=== PATIENT | female | born 1950 | race Caucasian/White ===

== ENCOUNTER 2017-08-18 10:29 | Inpatient (IN) | payer MEDICARE, SELFPAY ==
[~2017-08-18 10:29] MED LIST: Dexamethasone 20 MG/5 ML VIAL ONE; Lidocaine 1% PF 5 ML VIAL ONE; Ondansetron HCl/PF 4 MG/2 ML Vial ONE; Propofol 200 MG/20 ML VIAL ONE; Succinylcholine Chloride 20 MG/ML 10 ml SYRINGE FS ONE
[2017-08-18] MEDS ORDERED: Morphine 2 MG/ML SYRINGE ONE ×2 (11:06→12:27)
[2017-08-18 12:26] LABS: #Lymphocytes 0.7 thou/uL (1.20-3.40); #Monocytes 0.8 thou/uL (0.11-0.59); #Neutrophils 6.5 thou/uL (1.40-6.50); %Basophils 0.5 % (0.0-1.0); %Eosinophils 0.1 % (0.0-10.0); %Lymphocytes 9.2 % (21.0-51.0); %Monocytes 9.5 % (0.0-10.0); %Neutrophils 80.7 % (42.0-75.0); Hemoglobin 12.2 g/dL (12.0-16.0); Mean Corpuscular HGB CONC 33.6 g/dL (32.0-36.0); Mean Corpuscular Volume 95.1 fl (81.0-99.0); Platelet Count 235 thou/uL (130-400); RBC Distribution Width 13.3 % (11.5-14.5); Red Blood Cell (RBC) Count 3.82 mill/uL (4.20-5.40); White Blood Cell (WBC) Count 8.1 thou/uL (4.8-10.8)
[2017-08-18] MEDS ORDERED: Ketorolac Tromethamine 30 MG/ML VIAL ONE (12:27)
[2017-08-18 12:32] LABS: PTT 24.9 SEC (22.9-36.1)
[2017-08-18 12:43] LABS: Bilirubin Negative (Negative); Blood, Urine Negative (Negative); Clarity CLEAR (Clear); Glucose, Urine (Dipstick) Negative (Negative); Leukocyte Negative (Negative); Nitrite Negative (Negative); Protein, Urine (Dipstick) Negative (Neg-Trace); Specific Gravity, Urine 1.018 (1.002-1.036); pH, Urine 5.5 (5.0-9.0)
[2017-08-18] MEDS ORDERED: CEFAZOLIN/Water 2 GM/20 ML SYRINGE SLOW IVP SCH ×2 (12:45→15:45)
[2017-08-18 12:48] LABS: ALT (SGPT) 19 U/L (8-55); AST (SGOT) 24 U/L (5-34); Albumin 4.2 g/dL (3.4-4.8); Alkaline Phosphatase 103 U/L (40-150); Anion Gap 18 mmol/L (10-20); BUN (Urea Nitrogen) 19 mg/dL (9.8-20.1); CK (CPK) 373 U/L (29-168); Calc. Creatinine Clearance 0 mL/min (70-130); Calcium 9.3 mg/dL (7.8-10.44); Carbon Dioxide 21 mmol/L (23-31); Chloride 106 mmol/L (98-107); Estimated GFR-MDRD Greater than 90; Globulin 2.6 g/dL (2.4-3.5); Glucose 105 mg/dL (80-115); Lipase 7 U/L (8-78); Potassium 3.7 mmol/L (3.5-5.1); Protein, Total 6.8 g/dL (6.0-8.3); Sodium 141 mmol/L (136-145)
[2017-08-18] MEDS ORDERED: Dextrose 50% Abboject 50 ML SYRINGE SLOW IVP PRN ×2 (12:59→17:00)
[2017-08-18] MEDS ORDERED: Dextrose 5% in Water 1,000 ML IV PRN ×2 (12:59→17:00)
[2017-08-18] MEDS ORDERED: hydrALAZINE 20 MG/ML VIAL SLOW IVP PRN (12:59)
[2017-08-18] MEDS ORDERED: Ondansetron ODT 4 MG TAB PO PRN (12:59)
[2017-08-18] MEDS ORDERED: Morphine 4 MG/ML Carpuject IVP PRN (12:59)
[2017-08-18] MEDS ORDERED: Ondansetron HCl/PF 4 MG/2 ML Vial IVP PRN ×3 (12:59→17:03)
[2017-08-18] MEDS ORDERED: Sodium Chloride 0.9% 1,000 ML IV SCH (13:00)
--- NOTE | 2017-08-18 13:24 | CON ---
DATE OF CONSULTATION: 08/18/2017 CHIEF COMPLAINT: Left leg pain. HISTORY OF PRESENT ILLNESS: Ms. Cannon is a 67-year-old female who fell last night. She was not foun d and laid on the ground overnight. She was found by her neighbor this morning. She was taken to [facility] emergency department by EMS. She has been diagnosed with a distal femur fracture on x-ray. This w as an isolated injury. She is healthy overall. She does have hypertension. She has had a previous ankle fracture and distal tibia fracture. PAST MEDICAL HISTORY: Hypertension. PAST SURGICAL HISTORY: Previous left ankle ORIF and left tibia fracture ORIF. SOCIAL HISTORY: The patient denies tobacco, alcohol, or drug use. She works as a volunteer. FAMILY MEDICAL HISTORY: Noncontributory. PHYSICAL EXAMINATION: VITAL SIGNS: Stable. She is alert and oriented. She has been afebrile. HEENT: Normocephalic, atraumatic. RESPIRATORY: Breathing comfortably. ABDOMEN: Soft, nontender, nondistended. MUSCULOSKELETAL: The patient's left leg is in externally rotated and shortened position. She is inderjit rovascularly intact in the foot and ankle. She has pain with motion. She has palpable dorsalis pedi s pulse. Sensation intact in the dorsal and plantar aspect. IMAGES: X-rays of the left femur demonstrate a comminuted fracture of the femur with displacement an d shortening. There is intra-articular involvement of the distal femur fracture. She has previously placed tibial plate. IMPRESSION: Left distal femur fracture. PLAN: At this point, the patient will need operative treatment. I will plan for an intramedullary n ail of the left distal femur to restore anatomic alignment and promote healing. Goal surgery is pain relief and early mobilization. Risks have been reviewed in detail and she has accepted these. She will remain n.p.o. until after surgery. She will have appropriate antibiotics. Appropriate DVT prop hylaxis. All questions have been answered.
[2017-08-18] MEDS ORDERED: CEFAZOLIN/Water 2 GM/20 ML SYRINGE ONE (13:39)
[2017-08-18] MEDS ORDERED: Midazolam HCl 2 mg/2 ml Vial ONE (13:39)
--- NOTE | 2017-08-18 14:12 | HP ---
ADMITTING PHYSICIAN: Dr. Esdras Ryder. REQUESTING PHYSICIAN: Dr. Trevin Cyr. CONSULTING PHYSICIAN: Dr. Jose Eduardo Kim. CHIEF COMPLAINT: Left femur fracture. HISTORY OF PRESENT ILLNESS: The patient is a 67-year-old female who reportedly tripped and fell over her cat last night in the kitchen. She was unable to get off the floor and was unable to reach for her phone. She spent the night on the floor and was eventually discovered by a neighbor who heard her screaming this morning. She was brought to the [place] ED, evaluated and found to have a comminuted distal left femur fracture. The patient denies that she was drinking last night. Denies head injury, loss of consciousness or any other injury. On examination, she reports that her pain is 10/10, located in the distal left thigh and knee area. She said the pain does not radiate. She denies numbness or tingling in her extremities. She denies headache, dizziness , nausea, vomiting or other musculoskeletal pain. Dr. Kim was consulted for possible surgical fixation of her left leg and Trauma Services asked to admit. HOME MEDICATIONS: Include metoprolol, unknown dose; lisinopril, unknown dose; Seroquel, unknown dose; Lamictal, unknown dose and clonazepam, unknown dose. PAST MEDICAL HISTORY: Includes hypertension. PAST SURGICAL HISTORY: The patient reports a remote history of hysterectomy. Lumpectomy in the 1970s. Gastric bypass, 10 or more years ago. Open reduction and internal fixation of her left tibia 3 years ago as well as open reduction and internal fixation of her left ankle approximately 3 years ago as well. SOCIAL HISTORY: The patient lives alone. She has 2 adult children. She does not smoke. She does not do drugs. She does drink 1-2 alcoholic drinks per night. ALLERGIES: The patient does report a SHELLFISH allergy, but does not report any medication allergies. FAMILY HISTORY: Noncontributory. PHYSICAL EXAMINATION: VITAL SIGNS: Blood pressure 178/87, pulse 81, respirations 20 and O2 saturation 97% on room air. GENERAL APPEARANCE: The patient is an adult female who appears young for stated age, lying in bed. She does appear to be in a moderate amount of distress. She has pains such as grimacing and wincing. She is intermittently tearful when talking about her social situation. HEENT: She is normocephalic and atraumatic. Pupils are equal, round and reactive to light and accommodation. Extraocular movements are intact. Ears; external auditory canals are atraumatic. Nose; nares are patent. No blood. Oropharynx is atraumatic. Dentition intact. NECK: Supple and nontender. No carotid bruits. Trachea is midline. RESPIRATORY: Her breath sounds are clear to auscultation bilaterally with normal effort. CARDIOVASCULAR: She has a regular rate and rhythm. Normal S1 and S2. No murmurs, gallops or rubs. ABDOMEN: Soft, obese, nontender and nondistended. She has normal bowel sounds. MUSCULOSKELETAL: She is neurovascularly intact x4. Her radial and dorsalis pedis pulses are 2+ bilaterally. Her distal left thigh appears somewhat swollen. SKIN: Intact. There is no ecchymosis. There does not appear to be any gross deformity. NEUROLOGIC: She is alert and oriented x3. Her GCS is 15. Her cranial nerves II-XII are intact. She has no focal deficits. PSYCHIATRIC: The patient appears quite tearful at times on talking about her . She does not appear to have any thought disorder and her mood and affect are appropriate. LABORATORY DATA: Hematology: WBC is 8.1, hemoglobin is 12.2, hematocrit 36.3 and platelets 235. Coag panel: PT 13.0, INR 1.08 and PTT 24.9. Chemistry: Sodium 141, potassium 3.7, chloride 106, bicarbonate 21, BUN 19, creatinine 0.64 and glucose 105. Creatinine kinase 373. Lipase 7. Liver function panel is normal. Her urine contains trace ketones, but is otherwise normal. IMAGING DATA: Femur x-ray shows a distal comminuted left femur fracture. There is additional hardware in place from a previous tibial fracture. Chest x- ray by my read, this does not show any acute cardiopulmonary process; however, official read still pending. ASSESSMENT AND PLAN: 1. Status post mechanical fall. 2. Distal left comminuted femur fracture. 3. Acute traumatic pain. 4. History of hypertension, present on admission. 5. History of depression present on admission. PLAN: 1. Plan will be for surgical fixation of her left femur today. Dr. Jose Eduardo Kim will be taking her to the OR approximately 2:00 p.m. 2. The patient will be transferred to the surgical floor postoperatively. We will initiate pain control, gastritis prophylaxis and pulmonary toileting. Chemical DVT prophylaxis will be initiated when okay per Orthopedic Surgery recommendations. 3. The patient will be scheduled to work with PT and OT for help with mobilization. Anticipate patient will discharge home early next week. This patient was seen and discussed with Dr. Esdras Ryder, who agrees with the assessment and plan. BEATA
--- NOTE | 2017-08-18 14:26 | RAD ---
TWO VIEWS OF THE LEFT FEMUR: History Fall from standing yesterday and found this morning by a neighbor. Pain in the left leg. FINDINGS: Two views of the left femur show a comminuted fracture of the distal diaphysis of the femur. It is d ifficult to determine if the fracture extends to the intercondylar notch at the knee joint. There is a moderate knee effusion without obvious fat fluid level. IMPRESSION: Comminuted distal femur fracture. Dedicated radiographs of the knee should be performed to evaluate for intraarticular extension of this fracture. POS: [facility]
[2017-08-18] MEDS ORDERED: Fentanyl 250 MCG/5 ML VIAL ONE ×2 (14:32→16:33)
--- NOTE | 2017-08-18 14:35 | RAD ---
SINGLE VIEW OF THE CHEST: COMPARISON: None. History Fall. Preoperative exam. Left femur fracture. FINDINGS: A single view of the chest shows a normal-size cardiomediastinal silhouette. There is no evidence of consolidation, mass, or pleural effusion. Mild degenerative changes are seen in the spine. IMPRESSION: No evidence of acute cardiopulmonary disease. POS: [facility]
[2017-08-18] MEDS ORDERED: Promethazine HCl 25 MG/ML VIAL SLOW IVP PRN (15:35)
[2017-08-18] MEDS ORDERED: Promethazine HCl 25 MG/ML VIAL IM PRN (15:35)
[2017-08-18] MEDS ORDERED: traMADol HCl 50 MG TAB PO SCH (16:00)
[2017-08-18] MEDS ORDERED: Acetaminophen 500 MG TAB PO SCH (16:00)
[2017-08-18] MEDS ORDERED: traMADol HCl 50 MG TAB PO PRN (16:00)
--- NOTE | 2017-08-18 16:10 | OP ---
DATE OF PROCEDURE: 08/18/2017 PROCEDURE PERFORMED: Left femur retrograde intramedullary nail. PREOPERATIVE DIAGNOSIS: Left distal femur fracture, intra-articular. POSTOPERATIVE DIAGNOSIS: Left distal femur fracture, intraarticular. COMPLICATIONS: None. ESTIMATED BLOOD LOSS: 150 mL. SURGEON: Jose Eduardo Kim M.D. ANESTHESIA: General. NARROW GAUGE BRAKEMAN: Lisa Guerra PA-C. IMPLANTS: Synthes femoral nail, retrograde size 400 mm x 12 mm. INDICATIONS: Ms. Cannon is a 67-year-old female who fell. She fractured her left distal femur. She has had previous ankle and tibia fractures. She was indicated for intramedullary nail fixation of th e femur to restore alignment and promote healing in an anatomic fashion. Risks have been reviewed in detail. She elected to proceed. Risks include infection, nerve or vascular injury, wound complicat ion, nonunion, malunion, hardware failure or complication and others. DESCRIPTION OF PROCEDURE: Ms. Miguel was identified in the preoperative holding area. Her chris ect extremity was marked. She was carried to the operating room. She was positioned supine. Genera l anesthesia was induced. A multidisciplinary timeout was performed. She was given intravenous anti biotics. We began the procedure with evaluation of the fracture under intraoperative x-ray. We placed a clamp across the intraarticular split of the distal femur. We then placed a 4.0 screw across the fracture stabilizing the intraarticular split. At this point, we made a small approach to the anterior knee. We made a medial parapatellar arthrotomy. We then placed our guidewire in the center position of t he distal femur. We over reamed the guidewire. We then placed a ball-tip guidewire across the fract ure into the proximal femur. At this point, we evaluated again with intraoperative x-ray. We then o landen reamed the guidewire to a size 13 reamer. We then passed a 12 mm femoral nail. This was seated with x-ray. We then passed a helical blade and screw in the distal fragments appropriately. We plac ed a proximal cross lock screw using perfect mashpee technique. We took x-ray images confirming hardw are placement. We thoroughly irrigated with copious lavage. At this point, the patient's wounds wer e closed with 0 Vicryl suture, 2-0 Vicryl suture and reginald for the skin. A sterile dressing was ap plied as well as a knee immobilizer. She was taken to the recovery room in good condition without co mplications.
[2017-08-18] MEDS ORDERED: Morphine 2 MG/ML SYRINGE SLOW IVP PRN (17:02)
[2017-08-18] MEDS: Sodium Chloride 0.9% 1,000 ML IV SCH (17:15)
[2017-08-18] MEDS: Ibuprofen 600 MG TAB PO SCH (17:53)
[2017-08-18 18:39] VITALS: BMI 23.5
[2017-08-18] MEDS: Ondansetron ODT 4 MG TAB PO PRN (18:40)
--- NOTE | 2017-08-18 18:56 | RAD ---
TWO VIEWS RIGHT FOOT 08/18/17 HISTORY: Right great toe pain after a fall. FINDINGS: There is mild osteoarthritis involving the first metatarsophalangeal joint. Osteopenia is present. Th e great toe is obscured on the lateral projection due to overlying toes. There is a linear transverse area of sclerosis seen within the distal phalanx of the right great toe which may be attributable to the trabecular pattern, although fracture of indeterminate age is not entirely excluded. There is no fracture lucency visualized. No additional fracture is seen, and there is no dislocation. Mild degen erative changes are seen involving the hindfoot. IMPRESSION: 1. Transverse linear area of sclerosis in the distal phalanx right great toe which may represent a fracture of indeterminate age. No definite cortical disruption is present, and this could potentia lly be related to the trabecular pattern. The distal phalanx of the great toe is obscured on the late ral view limiting further evaluation. 2. Osteoarthritis first metatarsophalangeal joint. 3. Osteopenia. POS: [facility]
[2017-08-18] MEDS: traMADol HCl 50 MG TAB PO PRN (19:36)
[2017-08-18] MEDS: Famotidine 20 MG TAB PO SCH (20:48)
[2017-08-18] MEDS: Acetaminophen 500 MG TAB PO SCH (20:48)
[2017-08-18] MEDS: traMADol HCl 50 MG TAB PO SCH (20:49)
[2017-08-18] MEDS ORDERED: Prevnar 13-Val Conj/PF 0.5 ML SYRINGE IM ONE (21:00)
[2017-08-18] MEDS ORDERED: Famotidine/PF 20 mg/2ml Vial SLOW IVP SCH ×2 (21:00)
[2017-08-18] MEDS ORDERED: Famotidine 20 MG TAB PO SCH (21:00)
[2017-08-18] MEDS ORDERED: Lisinopril 10 MG TAB PO SCH (21:45)
--- NOTE | 2017-08-18 22:20 | RAD ---
AP AND LATERAL INTRAOPERATIVE FLUOROSCOPIC IMAGES OF THE LEFT FEMUR 08/18/17 HISTORY: Fracture, internal fixation. COMPARISON: 08/18/17, 1125 hours. There has been interval placement of a retrograde intramedullary alber with proximal and distal interlo cking screws transfixing the previously seen comminuted fracture of the distal left femoral diaphysis and metadiaphysis. No hardware complication is seen. There is improved alignment and angulation of t he fracture. Postsurgical changes proximal left knee are partially imaged as well. IMPRESSION: Internal fixation comminuted fracture distal left femur. POS: [facility]
[2017-08-19] MEDS: Ibuprofen 600 MG TAB PO SCH ×5 (00:11→23:49)
[2017-08-19] MEDS: Sodium Chloride 0.9% 1,000 ML IV SCH ×2 (00:12→07:10)
--- NOTE | 2017-08-19 01:08 | ADD-HP ---
ADDENDUM This is an addendum to the H and P dictated by Tre Sanchez trauma PA. For full details please se nahid lawson dictation. In short Ms. Miguel is a 67-year-old woman who tripped over her cat and fell onto her left leg. She was unable to get up and lay on the kitchen floor all night until she was heard by a neighbor th is morning and brought to the emergency room. She was found to have a comminuted intra-articular dis robert left femur fracture. She denies loss of consciousness or any other injuries. She has already be en to the operating room with Dr. Kim for ORIF and is feeling better now. OUTPATIENT MEDICATIONS: Include metoprolol and another blood pressure medication of his name she is not sure. She did give the nurse the name of her pharmacy to call and check on her doses as she does not know any of her doses. PAST MEDICAL HISTORY: She has a past medical history of only hypertension, has had multiple ORIF on the left leg including the ankle and the tibia. She underwent gastric bypass many years ago as well as a hysterectomy and a lumpectomy. SOCIAL HISTORY: She does not smoke or use illicit drugs. She does drink socially 1 or 2 drinks per night. ALLERGIES: She has no medication allergies. Does report a SHELLFISH allergy. FAMILY HISTORY: Noncontributory. PHYSICAL EXAMINATION: Complete physical examination was performed myself with the exception of the l eft distal femur fracture and postoperative changes. No other injuries were identified. LABORATORY DATA AND IMAGING: Reviewed and I agree with the written reports. ASSESSMENT: Distal left femur fracture, status post open reduction and internal fixation. The nurse is updating her medication list so we can start her back on her oral antihypertensives. She is runn ing a little high with her systolic in the 160s and usually takes her blood pressure pills at night. Physical therapy has been ordered to begin working with the patient tomorrow. We will continue to ariel cortez to manage her overall care.
[2017-08-19] MEDS: traMADol HCl 50 MG TAB PO SCH ×4 (03:00→21:54)
[2017-08-19] MEDS: traMADol HCl 50 MG TAB PO PRN ×3 (03:00→17:35)
[2017-08-19] MEDS: Acetaminophen 500 MG TAB PO SCH ×4 (03:01→21:54)
[2017-08-19 05:41] LABS: Anion Gap 10 mmol/L (10-20); BUN (Urea Nitrogen) 13 mg/dL (9.8-20.1); CK (CPK) 255 U/L (29-168); Calc. Creatinine Clearance 99 mL/min (70-130); Calcium 7.9 mg/dL (7.8-10.44); Carbon Dioxide 23 mmol/L (23-31); Chloride 106 mmol/L (98-107); Estimated GFR-MDRD Greater than 90; Glucose 105 mg/dL (80-115); Magnesium 1.8 mg/dL (1.6-2.6); Phosphorus 3.6 mg/dL (2.3-4.7); Potassium 4.1 mmol/L (3.5-5.1); Sodium 135 mmol/L (136-145)
[2017-08-19 06:05] LABS: #Lymphocytes 1.3 thou/uL (1.20-3.40); #Monocytes 0.8 thou/uL (0.11-0.59); #Neutrophils 3.9 thou/uL (1.40-6.50); %Basophils 0.1 % (0.0-1.0); %Eosinophils 0.6 % (0.0-10.0); %Lymphocytes 21.6 % (21.0-51.0); %Monocytes 13.4 % (0.0-10.0); %Neutrophils 64.4 % (42.0-75.0); Hemoglobin 8.5 g/dL (12.0-16.0); Mean Corpuscular HGB CONC 30.9 g/dL (32.0-36.0); Mean Corpuscular Hemoglobin 30.5 pg (27.0-31.0); Mean Corpuscular Volume 98.7 fl (81.0-99.0); Mean Platelet Volume 8.8 fL (7.4-10.4); Platelet Count 163 thou/uL (130-400); RBC Distribution Width 13.2 % (11.5-14.5); Red Blood Cell (RBC) Count 2.78 mill/uL (4.20-5.40); White Blood Cell (WBC) Count 6.1 thou/uL (4.8-10.8)
[2017-08-19] MEDS: Enoxaparin Sodium 40 MG/0.4 ML SYRINGE SC SCH (08:17)
[2017-08-19] MEDS: Famotidine 20 MG TAB PO SCH ×2 (08:18→20:47)
[2017-08-19] MEDS: Ondansetron ODT 4 MG TAB PO PRN (12:49)
--- NOTE | 2017-08-19 17:25 | PRG ---
DATE OF SERVICE: 08/19/2017 ATTENDING PHYSICIAN: Dr. Esdras Ryder. SUBJECTIVE: Ms. Miguel is a 67-year-old female who suffered a distal left femur fracture after a ground-level fall a couple of days ago. She was unable to get off the floor and sustained some mil d rhabdomyolysis. She is currently postop day #1, status post intramedullary nail fixation. She is currently stable on the floor and reporting adequate pain control. OBJECTIVE: VITAL SIGNS: BP 125/74, pulse 60, temperature 98.0, respirations 18, O2 sat 97% on room air. GENERAL: Patient is an adult female in no acute distress. HEENT: She is normocephalic and atraumatic. RESPIRATORY: Her breath sounds are clear to auscultation bilaterally with normal effort. CARDIOVASCULAR: She has a regular rate and rhythm. No murmurs, gallops or rubs. ABDOMEN: Soft, obese, nontender, nondistended. She has normal bowel sounds. MUSCULOSKELETAL: She is neurovascularly intact x4. Her distal pulses are 2+ bilaterally. NEUROLOGIC: She is alert and oriented x3. Her GCS is 15. She has no focal deficits. LABORATORY DATA: Hematology: WBC 6.1, hemoglobin 8.5, hematocrit 27.5, platelets 163. Chemistry: Sodium 135, potassium 4.1, chloride 106, bicarbonate 23, BUN 13, creatinine 0.61, glucose 105, creati ne kinase 255 today down from 373 yesterday. IMAGING: There are no images to review today. ASSESSMENT: 1. Status post ground level fall. 2. Distal left comminuted femur fracture, status post intramedullary nail. 3. Acute traumatic pain. 4. History of hypertension. 5. History of depression. PLAN: 1. Continue to optimize patient's pain control. 2. Gastritis prophylaxis and supportive care measures as needed. 3. Chemical DVT prophylaxis when okay per Orthopedic Surgery recommendations. 4. Patient will need to work with PT and OT for mobilization. This patient was discussed over the phone with Dr. Mikael Ross who agrees with the assessment and p sg.
[2017-08-19] MEDS ORDERED: Lisinopril 10 MG TAB PO SCH (21:00)
[2017-08-20] MEDS: Acetaminophen 500 MG TAB PO SCH ×4 (03:48→22:07)
[2017-08-20] MEDS: traMADol HCl 50 MG TAB PO SCH ×4 (03:48→22:07)
[2017-08-20] MEDS: Ibuprofen 600 MG TAB PO SCH ×3 (05:41→17:45)
[2017-08-20] MEDS: Famotidine 20 MG TAB PO SCH ×2 (09:50→20:21)
[2017-08-20] MEDS: Senokot S 8.6-50 MG TAB PO SCH ×2 (09:50→20:21)
[2017-08-20] MEDS: Polyethylene Glycol 3350 17 GM Packet PO SCH (09:50)
[2017-08-20] MEDS: Enoxaparin Sodium 40 MG/0.4 ML SYRINGE SC SCH (09:50)
[2017-08-20] MEDS: traMADol HCl 50 MG TAB PO PRN ×2 (09:51→16:11)
--- NOTE | 2017-08-20 14:00 | PQF ---
CLINICAL DOCUMENTATION IMPROVEMENT CLARIFICATION FORM: ICD-10 Updated PLEASE DO AN ADDENDUM TO THE PROGRESS NOTE WITH ANY DOCUMENTATION UPDATES OR ADDITIONS AND CARRY THROUGH TO DC SUMMARY. THANK YOU. DATE: 08/20 ATTN: DR. LÓPEZ MANCERA Please exercise your independent, professional judgment in responding to the clarification form. Clinical indicators are provided on the bottom of this form for your review. Please check appropriate box(s): [ ] RHABDOMYOLYSIS [ X ] RHABDOMYOLYSIS TRAUMATIC [ ] Other diagnosis [ ] Unable to determine For continuity of documentation, please document condition throughout progress notes and discharge summary. Thank You. CLINICAL INDICATORS - SIGNS / SYMPTOMS / LABS ER PRESENTATION 08/18: FELL FROM STANDING YESTERDAY. FOUND THIS AM BY NEIGHBOR ATTENDING H&P DOCUMENTATION 08/18: THE PATIENT REPORTEDLY TRIPPED AND FELL OVER HER CAT LAST NIGHT IN THE KITCHEN. SHE WAS UNABLE TO GET OFF THE FLOOR & WAS UABLE TO REACH FOR HER PHONE. SHE SPENT THE NIGHT ON THE FLOOR & WAS EVENTUALLY DISCOVERED BY A NEIGHBOR WHO HER SCREAMING THIS MORNING. ATTENDING PN 08/19: MS. KIMBROUGH SUFFERED A DISTAL LEFT FEMUR FRACTURE AFTER A GROUND LEVEL FALL A COUPLE OF DAYS AGO. SHE WAS UNABLE TO GET OFF THE FLOOR & SUSTAINED SOME MILD RHABDOMYOLYSIS. RISK FACTORS: FALL FROM STANDING LAY ON FLOOR OVER NIGHT L DISTAL FEMUR FRACTURE TREATMENTS: IVF (NS 08/18 - ; RECEIVED 1L NS IN ER) THANK YOU! Karishma (This form is maintained as a part of the permanent medical record) 2014 [employer]. All Rights Reserved Karishma Baker RN, BSN [email or web address] Office: [phone] [facility]
[2017-08-20] MEDS: hydrALAZINE 20 MG/ML VIAL SLOW IVP PRN (17:46)
[2017-08-20] MEDS ORDERED: Lisinopril 20 MG TAB PO SCH (19:45)
--- NOTE | 2017-08-20 23:05 | PRG ---
DATE OF SERVICE: 08/20/2017 ATTENDING PHYSICIAN: Dr. Mikael Ross. SUBJECTIVE: Mrs. Miguel is a 67-year-old female, who suffered a distal left femur fracture afte r ground level fall. She was unable to get up off the floor overnight and suffered some mild rhabdom yolysis. She is currently postop day #2 status post intramedullary nail fixation. She is currently stable on the floor reporting adequate pain control. OBJECTIVE: VITAL SIGNS: BP 168/71, pulse 68, temperature 98.4, respirations 18, and O2 sat 91% on room air. GENERAL APPEARANCE: The patient is an adult female in no acute distress. HEENT: Normocephalic and atraumatic. RESPIRATORY: Breath sounds clear to auscultation bilaterally with normal effort. CARDIOVASCULAR: Regular rate and rhythm. Normal S1 and S2. No murmurs, gallops, or rubs. ABDOMEN: Soft, obese, nontender, nondistended. She has normal bowel sounds. EXTREMITIES: She is neurovascularly intact x4. Dorsalis pedis pulses 2+ bilaterally. NEUROLOGIC: She is alert and oriented x3. Her GCS is 15. She has no focal deficits. LABORATORY DATA: There are no labs to review today. IMAGING: There are no images to review today. ASSESSMENT: 1. Status post ground level fall. 2. Distal left comminuted femur fracture, status post intramedullary nail. 3. Acute traumatic pain. 4. Mild rhabdomyolysis. 5. History of hypertension present on admission. 6. History of depression present on admission. PLAN: 1. We will continue pain control regimen is ordered. We will give other supportive care measures as needed. 2. Patient will need to work with PT and OT for mobilization. Her nurse report, the patient was dominique ble to work with PT and OT yesterday out of fear of getting hurt. I spoke with the patient on rounds this morning and she agreed to try to attempt to work with PT this morning. 3. Case management was following. The patient expresses her interest in going to a senior care facility in [place]. The patient was seen and examined along with Dr. Mikael Ross on rounds who agrees with the assessme nt and plan.
[2017-08-21] MEDS: Ibuprofen 600 MG TAB PO SCH ×4 (00:18→18:32)
[2017-08-21] MEDS: Acetaminophen 500 MG TAB PO SCH ×4 (03:50→21:16)
[2017-08-21] MEDS: traMADol HCl 50 MG TAB PO SCH ×4 (03:51→21:15)
[2017-08-21] MEDS: Famotidine 20 MG TAB PO SCH ×2 (08:34→21:15)
[2017-08-21] MEDS: Polyethylene Glycol 3350 17 GM Packet PO SCH (08:35)
[2017-08-21] MEDS: Senokot S 8.6-50 MG TAB PO SCH ×2 (08:35→21:17)
[2017-08-21] MEDS: hydrALAZINE 20 MG/ML VIAL SLOW IVP PRN ×2 (10:30→15:25)
[2017-08-21] MEDS: Enoxaparin Sodium 40 MG/0.4 ML SYRINGE SC SCH (10:31)
[2017-08-21] MEDS ORDERED: Lisinopril 20 MG TAB PO SCH ×2 (12:15→21:00)
[2017-08-21] MEDS: Lisinopril 20 MG TAB PO SCH (21:15)
--- NOTE | 2017-08-21 22:10 | PRG ---
DATE OF SERVICE: 08/21/2017 ATTENDING PHYSICIAN: Dr. Mikael Ross. SUBJECTIVE: Ms. Miguel is a 67-year-old female who had a ground level fall with a left distal femur fracture. She was unable to get off the floor at that time and had some rhabdomyolysis. CK began to come down after infusion of intravenous fluids. She is currently postoperative day #3 status post IM nail of the femur fracture. She has been stable on the floor, but did have some episodes of hypertension. Her home blood pressure medicine was restarted last night. Today, her lisinopril was increased from 20 mg to 40 mg in divided doses. OBJECTIVE: VITAL SIGNS: Temperature 98.8, pulse 68, respirations 18, O2 saturation 98% room air, blood pressure 196/88. It should be noted that after the a.m. dose of lisinopril, the blood pressure came down to 162/64. GENERAL: Well-nourished, well-developed female, sitting in bed, in no acute distress. HEENT: Normocephalic, atraumatic. RESPIRATORY: No respiratory distress. Bilateral breath sounds clear. CARDIOVASCULAR: Regular rate and rhythm. ABDOMEN: Soft, nontender, nondistended. EXTREMITIES: Neurovascular intact, of all extremities. Cap refill brisk. NEUROLOGIC: Alert and oriented x3. GCS 15. ASSESSMENT: 1. Status post ground level fall. 2. Left comminuted distal femur fracture. 3. Status post intramedullary nail. 4. Mild rhabdomyolysis, resolved. 5. History of hypertension, present on admission. PLAN: 1. Lisinopril increased to 40 mg in divided doses today. Reassess blood pressure in a.m. 2. Continue PT, OT for mobilization. 3. Case management following for placement in a intermediate facility. The patient was seen and examined by Dr. Ross who agrees with the assessment and plan. BEATA
[2017-08-22] MEDS: Ibuprofen 600 MG TAB PO SCH ×4 (00:17→17:57)
[2017-08-22] MEDS: Acetaminophen 500 MG TAB PO SCH ×4 (03:52→21:05)
[2017-08-22] MEDS: traMADol HCl 50 MG TAB PO SCH ×4 (03:52→21:04)
[2017-08-22] MEDS: traMADol HCl 50 MG TAB PO PRN ×2 (05:20→12:27)
[2017-08-22] MEDS: Enoxaparin Sodium 40 MG/0.4 ML SYRINGE SC SCH (09:57)
[2017-08-22] MEDS: Famotidine 20 MG TAB PO SCH ×2 (09:58→21:02)
[2017-08-22] MEDS: Polyethylene Glycol 3350 17 GM Packet PO SCH (09:59)
[2017-08-22] MEDS: Senokot S 8.6-50 MG TAB PO SCH ×2 (10:00→21:03)
[2017-08-22] MEDS: Lisinopril 20 MG TAB PO SCH ×2 (10:10→21:02)
--- NOTE | 2017-08-22 14:26 | PRG ---
DATE OF SERVICE: 08/22/2017 ATTENDING PHYSICIAN: Mikael Ross D.O. SUBJECTIVE: Ms. Miguel is a 67-year-old female who had a ground level fall with a left distal femur fracture. She is now postoperative day 4 status post IM nail of the femur. She has been stable on the floor. She had episodes of hypertension yesterday. Lisinopril was increased to 40 mg daily. She reports that her sleep was much better yesterday and her blood pressure has significantly come down. OBJECTIVE: VITAL SIGNS: Temperature 98.4, pulse 66, respirations 16, O2 sat 97% room air, blood pressure 147/75. GENERAL: Well-nourished, well-developed female sitting in bed, in no acute distress. HEENT: Normocephalic, atraumatic. RESPIRATORY: No respiratory distress. Bilateral breath sounds clear. CARDIOVASCULAR: Regular rate and rhythm. Heart sounds normal. ABDOMEN: Soft, nontender, nondistended. EXTREMITIES: Neurovascular intact in all extremities. Cap refill brisk. A knee immobilizer in place in left leg. NEUROLOGIC: Awake, alert and oriented x3. GCS 15. No focal deficits. ASSESSMENT: 1. Status post ground level fall. 2. Left comminuted distal femur fracture. 3. Status post intramedullary nail. 4. History of hypertension, present on admission. Lisinopril increased to 40 mg daily. PLAN: 1. Continue lisinopril 40 mg daily. This will be administered in the p.m. dosing fashion as her metoprolol is administered in the morning. 2. Continue PT, OT for mobilization. 3. Case management following the placement of intermediate facility. 4. Anticipate discharging to a intermediate facility in [place] with insurance approval received. 5. Lovenox for DVT prophylaxis. 6. Pepcid for PUD prophylaxis. The patient was seen and examined with Dr. Ross who agrees with the assessment and plan. [facility]
[2017-08-23] MEDS: Ibuprofen 600 MG TAB PO SCH ×4 (01:28→18:05)
[2017-08-23] MEDS: Acetaminophen 500 MG TAB PO SCH ×4 (05:06→21:33)
[2017-08-23] MEDS: traMADol HCl 50 MG TAB PO SCH ×4 (05:06→21:36)
[2017-08-23] MEDS: Enoxaparin Sodium 40 MG/0.4 ML SYRINGE SC SCH (08:29)
[2017-08-23] MEDS: Polyethylene Glycol 3350 17 GM Packet PO SCH (08:29)
[2017-08-23] MEDS: Senokot S 8.6-50 MG TAB PO SCH ×2 (08:30→22:35)
[2017-08-23] MEDS: CeleCOXIB 100 MG CAP PO PRN (08:30)
[2017-08-23] MEDS: Famotidine 20 MG TAB PO SCH ×2 (08:30→21:35)
[2017-08-23] MEDS ORDERED: Cyclobenzaprine 10 MG TAB PO PRN (09:11)
[2017-08-23] MEDS: hydrALAZINE 20 MG/ML VIAL SLOW IVP PRN (15:54)
--- NOTE | 2017-08-23 17:35 | PRG ---
DATE OF SERVICE: 08/23/2017 ATTENDING PHYSICIAN: Dr. Mikael Ross. SUBJECTIVE: Ms. Miguel is a 67-year-old female who had a ground level fall with a left distal femur fracture. She is now postoperative day #5, status post IM nail of the left femur. She has been stable in the surgical floor. She has been awaiting insurance approval for rehab placement. Pain has been well controlled; however, she reports she has been upset that insurance has not approved her rehab stay. She continues to work with physical and occupational therapy. OBJECTIVE: VITAL SIGNS: Temperature 98.0, pulse 62, respirations 18, O2 sat 97% on room air, blood pressure 144/72. GENERAL: Well-nourished, well-developed female lying in bed in no acute distress. HEENT: Normocephalic, atraumatic. RESPIRATORY: No respiratory distress. Bilateral breath sounds clear. CARDIOVASCULAR: Regular rate and rhythm. Heart sounds normal. ABDOMEN: Soft, nontender, nondistended. EXTREMITIES: Neurovascular intact in all extremities. Cap refill brisk. Knee immobilizer in place left leg. NEUROLOGIC: Awake, alert, oriented x3. GCS 15. No focal deficit. ASSESSMENT: 1. Status post ground level fall. 2. Left comminuted distal femur fracture. 3. Status post intramedullary nail. 4. History of hypertension, present on admission. PLAN: 1. Continue oral analgesia scheduled. 2. Continue antihypertensive medications as scheduled. 3. Continue PT, OT for mobilization. 4. Case management following for placement in a [facility] facility in [place], [place]. 5. Medically stable to discharge to [facility] facility when insurance approved. 6. Lovenox for deep venous thrombosis prophylaxis. 7. Pepcid for PUD prophylaxis. The patient was seen and examined with Dr. Ross, who agrees with the assessment and plan. [facility]
[2017-08-23] MEDS: traMADol HCl 50 MG TAB PO PRN (19:14)
[2017-08-23] MEDS: Lisinopril 20 MG TAB PO SCH (21:34)
[2017-08-24] MEDS: Ibuprofen 600 MG TAB PO SCH ×3 (00:07→11:59)
[2017-08-24] MEDS: Acetaminophen 500 MG TAB PO SCH ×3 (05:59→16:04)
[2017-08-24] MEDS: traMADol HCl 50 MG TAB PO SCH ×3 (06:00→16:05)
[2017-08-24] MEDS: CeleCOXIB 100 MG CAP PO PRN (09:38)
[2017-08-24] MEDS: Famotidine 20 MG TAB PO SCH (09:39)
[2017-08-24] MEDS: Senokot S 8.6-50 MG TAB PO SCH (09:40)
[2017-08-24] MEDS: Enoxaparin Sodium 40 MG/0.4 ML SYRINGE SC SCH (09:40)
[2017-08-24] MEDS: Polyethylene Glycol 3350 17 GM Packet PO SCH ×2 (09:40→09:41)
[2017-08-24] MEDS: hydrALAZINE 20 MG/ML VIAL SLOW IVP PRN (12:00)
[2017-08-24 15:23] VITALS: BP 145/75; TEMP 98.3
--- NOTE | 2017-08-25 01:13 | DIS ---
DATE OF ADMISSION: 08/18/2017 DATE OF DISCHARGE: 08/24/2017 ADMITTING PHYSICIAN: Dr. Esdras Ryder. DISCHARGING PHYSICIAN: Dr. Mikael Ross. REASON FOR HOSPITALIZATION: Ground level fall with left lower extremity pain. HOSPITAL DIAGNOSIS: Left distal comminuted femur fracture. DISCHARGE CONDITION: Good. DISPOSITION: [facility] in [place], [place]. MEDICATIONS: 1. Acetaminophen 500 mg p.o. q.6 hours. 2. Celebrex 100 mg p.o. b.i.d. 3. Flexeril 10 mg p.o. t.i.d. p.r.n. 4. Lovenox 40 mg subcutaneous once a day. 5. Pepcid 20 mg p.o. b.i.d. 6. Hydralazine 10 mg q.4 hours p.r.n. 7. Ibuprofen 600 mg p.o. q.6 hours. 8. Zestril 40 mg p.o. q.p.m. 9. Toprol-XL 50 mg p.o. q.a.m. 10. MiraLax 17 grams p.o. daily. 11. Senokot-S 1 tab p.o. b.i.d. 12. Tramadol 50 mg p.o. q.6 hours with an additional 50 mg p.o. q.6 hours p.r.n. PROCEDURES: Left femur retrograde IM nail. Surgeon: Dr. Jose Eduardo Kim. Date of procedure: 08/18/2017 BRIEF HISTORY OF HOSPITALIZATION: Ms. Miguel is a 67-year-old female who had a ground level fall on 08/18/2017. She was transported to [facility] where she was found to have a fracture of her left distal femur. She was admitted to the hospital by Trauma Services. Dr. Jose Eduardo iKm, Orthopedics, was consulted. He took the patient to the OR the same day of admission for fixation of her femur fracture. She was then managed on the surgical floor. Postoperatively, she had several bouts of hypertension, necessitating increase in her lisinopril. She subsequently had blood pressure that was within acceptable limits. She mobilized with physical and occupational therapy. Her discharge was delayed due to waiting on insurance approval for placement in a custodial facility. On 08/24/2017, authorization was obtained and acceptance to [facility] in [place], [place]. She was discharged to [facility]. She is to follow up with Dr. Kim in 2 weeks. There is no need for her to follow up with Trauma Services. The patient was seen and examined with Dr. Ross who agreed with the assessment and plan for discharge. [facility]
== END 2017-08-24 16:40 | DRG 956 ==
LOC: ERS 10:29 → SDC/OP 13:31 → SURG A 13:32
PROVIDERS: ADMIT Surgery; ATTEND Surgery
PROC: 0QHC36Z Insertion of Intramedullary Internal Fixation Device into Left Lower Femur, Percutaneous Approach (ICD-10-PCS; principal; 2017-08-18)
DX: S72.402A Unspecified fracture of lower end of left femur, initial encounter for closed fracture (principal); T79.6XXA Traumatic ischemia of muscle, initial encounter; G89.11 Acute pain due to trauma; I10 Essential (primary) hypertension; Z91.013 Allergy to seafood; Z79.899 Other long term (current) drug therapy; Z98.84 Bariatric surgery status; W01.0XXA Fall on same level from slipping, tripping and stumbling without subsequent striking against object, initial encounter; Y92.010 Kitchen of single-family (private) house as the place of occurrence of the external cause
CPT/HCPCS: 36415; 51702; 71045; 76001; 80048; 80053; 81003; 82550; 83690; 83735; 84100; 85025; 85610; 85730; 86850; 86900; 86901; 90471; 90670; 93005; 96361; 96374; 96375; 96376; C1713; C1769; G0009; G0390; G8978-GP-CL; G8979-GP-CI; G8987-GO-CL; G8988-GO-CI; J0360; J1100; J1650; J1885; J2001; J2250; J2270; J2405; J2704; J3010; Q0162